=== PATIENT | female | born 1995 | race Two or more races ===

== ENCOUNTER 2020-03-14 00:06 | Emergency (ER) | payer OTHER ==
[~2020-03-14] VITALS: Ht 162.6 cm; Wt 65.8 kg
[2020-03-14] MEDS ORDERED: DECADRON4 MG PO (04:11)
[2020-03-14] MEDS ORDERED: SYMBICORT 16010.2 GM IH (04:11)
[2020-03-14] MEDS ORDERED: INTESTINEX680 M1 PO (04:11)
[2020-03-14] MEDS ORDERED: ZITHROMAX500 MG PO (04:11)
== END 2020-03-14 04:47 ==
LOC: ER 00:06
DX: U07.1 COVID-19 (principal); B96.0 Mycoplasma pneumoniae [M. pneumoniae] as the cause of diseases classified elsewhere; R06.02 Shortness of breath

== ENCOUNTER → 2020-04-10 | Outpatient (CLI) | payer OTHER ==
[~2020-04-10] MED LIST: DECADRON4 MG PO; INTESTINEX680 M1 PO; SYMBICORT 16010.2 GM IH; ZITHROMAX500 MG PO
== END | disposition home or self-care (01) ==
LOC: PRENATAL 15:30
PROVIDERS: ATTEND Obstetrics & Gynecology Maternal & Fetal Medicine
DX: O35.0XX1 Maternal care for (suspected) central nervous system malformation in fetus, fetus 1 (principal); O35.3XX1 Maternal care for (suspected) damage to fetus from viral disease in mother, fetus 1; Z36.89 Encounter for other specified antenatal screening; O98.512 Other viral diseases complicating pregnancy, second trimester; Z3A.19 19 weeks gestation of pregnancy

== ENCOUNTER → 2020-08-10 | Outpatient (CLI) | payer OTHER ==
[~2020-08-10] MED LIST changes: +PRENATAL TABLE1 EAC3 PO
== END | disposition home or self-care (01) ==
LOC: PRENATAL 15:00
PROVIDERS: ATTEND Obstetrics & Gynecology Maternal & Fetal Medicine
DX: O26.843 Uterine size-date discrepancy, third trimester (principal); O36.8131 Decreased fetal movements, third trimester, fetus 1; Z36.89 Encounter for other specified antenatal screening; Z3A.38 38 weeks gestation of pregnancy

== ENCOUNTER 2020-08-25 04:26 | Inpatient (IN) | payer OTHER ==
[~2020-08-25] VITALS: Ht 162.6 cm; Wt 74.8 kg
[~2020-08-25 04:26] MED LIST changes: -PRENATAL TABLE1 EAC3 PO
[2020-08-25] MEDS ORDERED: PRENATAL TABLE1 EAC3 PO (04:44)
== END 2020-08-28 14:12 | disposition home or self-care (01) | DRG 807 ==
LOC: OBS/DEL 04:26 → LDR 17:07 → OBS/DEL 17:07 → OB/GYN 08-26 16:26
PROVIDERS: ADMIT Obstetrics & Gynecology; ATTEND Obstetrics & Gynecology
PROC: 4A1HXFZ Monitoring of Products of Conception, Cardiac Rhythm, External Approach (ICD-10-PCS; 2020-08-25)
PROC: 10E0XZZ Delivery of Products of Conception, External Approach (ICD-10-PCS; principal; 2020-08-26)
PROC: 0W8NXZZ Division of Female Perineum, External Approach (ICD-10-PCS; 2020-08-26)
DX: O80 Encounter for full-term uncomplicated delivery (principal); Z37.0 Single live birth; Z3A.38 38 weeks gestation of pregnancy; Z20.822 Contact with and (suspected) exposure to COVID-19